=== PATIENT | female | born 1970 | race Two or more races ===

== ENCOUNTER 2023-12-12 17:17 | Emergency (ER) | payer MEDICAID, OTHER ==
[~2023-12-12] VITALS: Ht 147.3 cm; Wt 57.2 kg
[2023-12-12 18:25] LABS: Urine Bacteria MANY /hpf (None Seen); Urine Blood TRACE /uL (Negative); Urine Clarity HAZY (Clear); Urine Color Yellow (Yellow); Urine Mucus FEW (None Seen); Urine Protein, UAD 1+ (Negative); Urine Specific Gravity 1.013 (1.001-1.035); Urine Urobilinogen Normal (Negative); Urine WBC 100 /hpf (0 - 5)
[2023-12-12 18:36] LABS: Basophils # (auto) 0 10 ^3/uL (0-0.2); Basophils % (auto) 0.3 % (0.0-2.0); Eosinophils # (auto) 0 10 ^3/uL (0-0.8); Hematocrit 29.9 % (36.0-46.0); Hemoglobin 9.8 g/dL (12.2-16.2); Lymphocytes % (auto) 7.2 % (10.0-50.0); Mean Corpuscular Hemoglobin 29.2 pg (28.0-32.0); Mean Corpuscular Hgb Conc. 32.7 g/dL (32.0-36.0); Mean Corpuscular Volume 89.3 fL (80.0-100.0); Monocytes # (auto) 0.8 10 ^3/uL (0-1.3); Monocytes % (auto) 6.1 % (0.0-12.0); Neutrophils # (auto) 11.8 10 ^3/uL (1.6-8.6); Neutrophils % (auto) 86.4 % (37.0-80.0); Red Blood Cells 3.35 10^6/uL (4.0-5.20); Red Cell Distribution Width 14.8 % (11.8-14.3); White Blood Cell 13.7 10^3/uL (4.4-10.8)
[2023-12-12 18:52] LABS: Alanine Aminotransferase 12 U/L (7-40); Albumin 3.6 g/dL (3.2-4.8); Alkaline Phosphatase 86 U/L (46-116); Anion Gap 7 (5-15); Aspartate Aminotransferase 13 U/L (13-40); BUN/Creatinine Ratio 27.9 (10.0-20.0); Bilirubin, Total 0.9 mg/dL (0.2-1.0); Blood Urea Nitrogen 34 mg/dL (9-23); Calcium 8.5 mg/dL (8.7-10.4); Carbon Dioxide 27 mmol/L (20-30); Chloride 103 mmol/L (98-107); Glucose 158 mg/dL (74-106); Lipase 30 U/L (12-53); Sodium 137 mmol/L (136-145); Total Protein 5.9 g/dL (5.7-8.2)
[2023-12-12] MEDS ORDERED: DICY10CA PO (20:02)
[2023-12-12] MEDS ORDERED: NAP500T PO (20:02)
[2023-12-12] MEDS ORDERED: ZOFR4T PO (20:02)
[2023-12-12] MEDS ORDERED: CIPR-173 PO (20:02)
[2023-12-12] MEDS: MAALOX PLUS or MAALOX 30 ML PO ONE (21:54)
[2023-12-12] MEDS: ONDANSETRON ODT 4 MG TAB PO ONE (21:54)
[2023-12-12] MEDS: DONNATAL 5ml ORAL Elix (BELLADONNA ALK-PHENOBARB) PO ONE (21:54)
[2023-12-12] MEDS: LIDOCAINE VISCOUS 2% 15ML UD PO ONE (21:55)
[2023-12-12] MEDS: KETOROLAC TROMETH 60MG/2ML VIAL IM ONE (21:56)
[2023-12-12 22:21] VITALS: BP 124/70; PULSE 100; RESP 17; TEMP 98.3; O2SAT 100
== END 2023-12-12 22:24 | disposition home or self-care (01) ==
LOC: ER 17:17
DX: N10 Acute pyelonephritis (principal); K52.9 Noninfective gastroenteritis and colitis, unspecified; K59.00 Constipation, unspecified; E11.9 Type 2 diabetes mellitus without complications; I10 Essential (primary) hypertension
CPT/HCPCS: 36415; 74176; 80053; 81001; 83690; 85025; 96372; 99285; J1885; Q0162

== ENCOUNTER 2024-03-17 23:44 | Inpatient (IN) | payer MEDICAID ==
[~2024-03-17] VITALS: Ht 152.4 cm; Wt 70.8 kg
[~2024-03-17 23:44] MED LIST: ATOR20TA50 PO; BENA10TA16 GT; CARV3.1240 PO; CHOL200021 PO; CIPR-173 PO; DICY10CA PO; DULA3INJ SC; FURO1TAB33 PO; INSU1INJ19 SC; LOSA-533 PO; NAP500T PO; ZOFR4T PO
[2024-03-18] VITALS (10 sets, daily range): BP systolic 141–174; BP diastolic 62–79; PULSE 84–90; RESP 18–36; TEMP 97.5–98.3; O2SAT 96–98
[2024-03-18] MEDS: cloNIDine HCL 0.1 MG TAB PO ONE (00:11)
[2024-03-18 00:43] LABS: Basophils # (auto) 0.1 10 ^3/uL (0-0.2); Basophils % (auto) 1.1 % (0.0-2.0); Eosinophils # (auto) 0.1 10 ^3/uL (0-0.8); Eosinophils % (auto) 2.6 % (0.0-7.0); Hematocrit 22.7 % (36.0-46.0); Hemoglobin 7.4 g/dL (12.2-16.2); Lymphocytes # (auto) 1.8 10 ^3/uL (0.4-5.4); Lymphocytes % (auto) 33.7 % (10.0-50.0); Mean Corpuscular Hemoglobin 29.6 pg (28.0-32.0); Mean Corpuscular Hgb Conc. 32.5 g/dL (32.0-36.0); Mean Corpuscular Volume 91.1 fL (80.0-100.0); Monocytes # (auto) 0.4 10 ^3/uL (0-1.3); Monocytes % (auto) 6.9 % (0.0-12.0); Neutrophils # (auto) 2.9 10 ^3/uL (1.6-8.6); Neutrophils % (auto) 55.7 % (37.0-80.0); Nucleated Red Blood Cells % 0.1 %; Red Blood Cells 2.49 10^6/uL (4.0-5.20); Red Cell Distribution Width 14.9 % (11.8-14.3); White Blood Cell 5.2 10^3/uL (4.4-10.8)
[2024-03-18 00:56] LABS: Alanine Aminotransferase 33 U/L (7-40); Albumin 3.6 g/dL (3.2-4.8); Alkaline Phosphatase 268 U/L (46-116); Anion Gap 7 (5-15); Aspartate Aminotransferase 23 U/L (13-40); BUN/Creatinine Ratio 23.3 (10.0-20.0); Blood Urea Nitrogen 30 mg/dL (9-23); Calcium 8.9 mg/dL (8.7-10.4); Carbon Dioxide 23 mmol/L (20-30); Chloride 105 mmol/L (98-107); Glucose 353 mg/dL (74-106); Lipase 37 U/L (12-53); Potassium 4.1 mmol/L (3.5-5.1); Sodium 135 mmol/L (136-145)
[2024-03-18 00:57] LABS: Bilirubin, Total 0.5 mg/dL (0.2-1.0); Total Protein 6.7 g/dL (5.7-8.2)
[2024-03-18 01:34] LABS: Ferritin 59.4 ng/mL (10-291); Folate (Folic Acid) 17.5 ng/mL (>5.38)
[2024-03-18 01:49] LABS: % Iron Saturation 12.2 % (15-50)
[2024-03-18] MEDS ORDERED: HYDROcodone-ACET 5/325MG TAB PO PRN (02:00)
[2024-03-18] MEDS ORDERED: DOCUSATE SOD 100 MG CAP PO PRN (02:00)
[2024-03-18] MEDS ORDERED: MORPHINE SULFATE INJ 2 MG/ml SYRG IV PRN (04:00)
[2024-03-18] MEDS ORDERED: NITROGLYCERIN 0.4 MG SL TAB SL PRN (04:00)
[2024-03-18 04:20] LABS: Eosinophils # (auto) 0.1 10 ^3/uL (0-0.8); Lymphocytes # (auto) 1.9 10 ^3/uL (0.4-5.4); Monocytes # (auto) 0.4 10 ^3/uL (0-1.3)
[2024-03-18 04:22] LABS: Basophils # (auto) 0 10 ^3/uL (0-0.2); Basophils % (auto) 0.9 % (0.0-2.0); Eosinophils % (auto) 2.7 % (0.0-7.0); Hematocrit 20.4 % (36.0-46.0); Lymphocytes % (auto) 35.4 % (10.0-50.0); Mean Corpuscular Hemoglobin 30.3 pg (28.0-32.0); Mean Corpuscular Hgb Conc. 33.4 g/dL (32.0-36.0); Mean Corpuscular Volume 90.6 fL (80.0-100.0); Monocytes % (auto) 7.9 % (0.0-12.0); Neutrophils # (auto) 2.8 10 ^3/uL (1.6-8.6); Neutrophils % (auto) 53.1 % (37.0-80.0); Red Blood Cells 2.25 10^6/uL (4.0-5.20); Red Cell Distribution Width 14.8 % (11.8-14.3); White Blood Cell 5.2 10^3/uL (4.4-10.8)
[2024-03-18 04:30] LABS: Hemoglobin 6.8 g/dL (12.2-16.2)
[2024-03-18 04:44] LABS: Alanine Aminotransferase 29 U/L (7-40); Alkaline Phosphatase 239 U/L (46-116); Anion Gap 5 (5-15); Aspartate Aminotransferase 17 U/L (13-40); BUN/Creatinine Ratio 26.1 (10.0-20.0); Blood Urea Nitrogen 30 mg/dL (9-23); Calcium 8.6 mg/dL (8.5-10.1); Carbon Dioxide 26 mmol/L (20-30); Chloride 106 mmol/L (98-107); Glucose 253 mg/dL (74-106); Potassium 4.1 mmol/L (3.5-5.1); Sodium 137 mmol/L (136-145)
[2024-03-18 04:45] LABS: Albumin 3.2 g/dL (3.2-4.8); Bilirubin, Total 0.5 mg/dL (0.2-1.0); Total Protein 5.8 g/dL (5.7-8.2)
[2024-03-18 05:07] LABS: Hypochromia Slight; Platelet Estimate Adequate
[2024-03-18] MEDS: SODIUM CHLORIDE 0.9% 1,000 ML IV ONE (05:43)
[2024-03-18] MEDS: FUROSEMIDE 40 MG/4 ML VIAL IV ONE (05:44)
[2024-03-18] MEDS: InsuLIN REG 1unit/0.01ml Soln (100units/ml) SC SCH (05:44)
[2024-03-18] MEDS: INSULIN LISPRO (HUMAN) 100 UNITS/ML ML SC ONE (05:46)
[2024-03-18] MEDS: ACCU-CHEK COMFORT CURVE STRIP VI SCH (05:46)
[2024-03-18] MEDS: SODIUM CHLOR 0.9% PF (SALINE LOCK) 10ML VIAL/SYR IV SCH (06:05)
[2024-03-18 08:10] LABS: Urine Bacteria FEW /hpf (None Seen); Urine Blood Negative /uL (Negative); Urine Clarity Turbid (Clear); Urine Color Colorless (Yellow); Urine Hyaline Cast FEW /lpf (0 - 2); Urine Protein, UAD TRACE (Negative); Urine Specific Gravity 1.006 (1.001-1.035); Urine Urobilinogen Normal (Negative); Urine WBC 136 /hpf (0 - 5); Urine pH 5.5 (5.0-9.0)
[2024-03-18] MEDS: DEXTROSE (50%) 50ML SYRG IV PRN (08:18)
[2024-03-18] MEDS: FUROSEMIDE 40 MG/4 ML VIAL IV SCH (11:06)
[2024-03-18] MEDS: amLODIPine BESYLATE 5 MG TAB PO SCH (11:17)
[2024-03-18] MEDS: CARVEDILOL 3.125 MG TAB PO SCH (11:17)
[2024-03-18] MEDS: ASPirin 81 mg TAB PO SCH (11:17)
[2024-03-18] MEDS: hydrALAZINE HCL 20 MG/ML VL IV PRN (19:11)
[2024-03-18] MEDS: ATORVASTATIN 20 MG TAB PO SCH (22:12)
[2024-03-19] VITALS (8 sets, daily range): BP systolic 146–189; BP diastolic 59–81; PULSE 88–99; RESP 14–20; TEMP 97.6–98.6; O2SAT 91–97
[2024-03-19] MEDS ORDERED: LOSA-534 PO (02:28)
[2024-03-19] MEDS ORDERED: CHOL500033 PO (02:28)
[2024-03-19] MEDS ORDERED: CYA100I PO (02:28)
[2024-03-19 06:04] LABS: Basophils # (auto) 0.1 10 ^3/uL (0-0.2); Basophils % (auto) 0.8 % (0.0-2.0); Eosinophils # (auto) 0.1 10 ^3/uL (0-0.8); Hematocrit 30.3 % (36.0-46.0); Lymphocytes # (auto) 1.5 10 ^3/uL (0.4-5.4); Lymphocytes % (auto) 22.3 % (10.0-50.0); Mean Corpuscular Hemoglobin 29.5 pg (28.0-32.0); Mean Corpuscular Hgb Conc. 32.9 g/dL (32.0-36.0); Mean Corpuscular Volume 89.5 fL (80.0-100.0); Monocytes # (auto) 0.5 10 ^3/uL (0-1.3); Neutrophils # (auto) 4.6 10 ^3/uL (1.6-8.6); Neutrophils % (auto) 66.9 % (37.0-80.0); Red Blood Cells 3.39 10^6/uL (4.0-5.20); Red Cell Distribution Width 15.1 % (11.8-14.3); White Blood Cell 6.8 10^3/uL (4.4-10.8)
[2024-03-19 06:24] LABS: Alanine Aminotransferase 21 U/L (7-40); Alkaline Phosphatase 198 U/L (46-116); Anion Gap 4 (5-15); BUN/Creatinine Ratio 24.6 (10.0-20.0); Blood Urea Nitrogen 28 mg/dL (9-23); Calcium 8.7 mg/dL (8.7-10.4); Carbon Dioxide 28 mmol/L (20-30); Chloride 108 mmol/L (98-107); Glucose 117 mg/dL (74-106); Potassium 3.8 mmol/L (3.5-5.1); Sodium 140 mmol/L (136-145)
[2024-03-19 06:25] LABS: Aspartate Aminotransferase 15 U/L (13-40); Bilirubin, Total 0.8 mg/dL (0.2-1.0); Total Protein 5.7 g/dL (5.7-8.2)
[2024-03-19] MEDS: cefTRIAXone 1GM/50ML D5W 50 ML IV SCH (10:13)
[2024-03-19] MEDS: ACETAMINOPHEN 325 MG TAB PO PRN (12:09)
[2024-03-20] VITALS (8 sets, daily range): BP systolic 144–176; BP diastolic 56–78; PULSE 71–96; RESP 17–20; TEMP 95.5–98.2; O2SAT 91–96
[2024-03-20] MEDS: PANTOPRAZOLE 40 MG TAB PO SCH (05:25)
[2024-03-20 07:06] LABS: Basophils # (auto) 0 10 ^3/uL (0-0.2); Basophils % (auto) 0.8 % (0.0-2.0); Eosinophils # (auto) 0.2 10 ^3/uL (0-0.8); Eosinophils % (auto) 2.7 % (0.0-7.0); Hematocrit 30.8 % (36.0-46.0); Hemoglobin 10.2 g/dL (12.2-16.2); Lymphocytes # (auto) 1.9 10 ^3/uL (0.4-5.4); Lymphocytes % (auto) 29.6 % (10.0-50.0); Mean Corpuscular Hemoglobin 29.7 pg (28.0-32.0); Mean Corpuscular Hgb Conc. 33.2 g/dL (32.0-36.0); Mean Corpuscular Volume 89.2 fL (80.0-100.0); Monocytes # (auto) 0.6 10 ^3/uL (0-1.3); Monocytes % (auto) 10.2 % (0.0-12.0); Neutrophils # (auto) 3.6 10 ^3/uL (1.6-8.6); Neutrophils % (auto) 56.7 % (37.0-80.0); Red Blood Cells 3.45 10^6/uL (4.0-5.20); White Blood Cell 6.3 10^3/uL (4.4-10.8)
[2024-03-20] MEDS: SODIUM FERR GLUC 62.5MG/5ML 110 ML IV SCH (14:02)
[2024-03-21] VITALS (9 sets, daily range): BP systolic 119–165; BP diastolic 53–68; PULSE 90–108; RESP 15–18; TEMP 97.7–98.6; O2SAT 92–98
[2024-03-21 07:57] LABS: INR 0.99 (0.9-1.15); Prothrombin Time 10.5 sec (9.3-11.8)
[2024-03-21] MEDS ORDERED: fentaNYL CITRATE 100 MCG/2 ML VL ONE (08:42)
[2024-03-21] MEDS ORDERED: MIDAZOLAM HCL 2MG/2ML 2ml VIAL (1mg/ml) ONE (08:43)
[2024-03-21] MEDS ORDERED: DexAMETHasone SOD PHOS 10MG/1ML VIAL INJ ONE (08:45)
[2024-03-21] MEDS ORDERED: DEXTROSE (50%) 50ML SYRG IV PRN (08:45)
[2024-03-21] MEDS: ONDANSETRON HCL 4 MG/2 ML VIAL IV PRN (08:46)
[2024-03-21] MEDS: LIDOCAINE VISCOUS 2% 15ML UD ONE (09:10)
[2024-03-21 09:17] LABS: Hepatitis B Surface Antigen Negative (Negative)
[2024-03-21] MEDS ORDERED: PROPOFOL 10 MG/ML 20 ML IV ONE (09:19)
[2024-03-21 09:39] LABS: Hepatitis C Antibody Negative (Negative)
[2024-03-21] MEDS: GOLYTELY 4L KIT PO ONE (12:02)
[2024-03-21] MEDS: ACCU-CHEK COMFORT CURVE STRIP VI SCH (12:02)
[2024-03-21] MEDS: InsuLIN REG 1unit/0.01ml Soln (100units/ml) SC SCH ×2 (12:03→21:19)
[2024-03-22] VITALS (12 sets, daily range): BP systolic 123–165; BP diastolic 49–104; PULSE 72–94; RESP 12–20; TEMP 98–98.4; O2SAT 94–97
[2024-03-22] MEDS: GOLYTELY 4L KIT PO ONE (05:16)
[2024-03-22] MEDS: MAGNESIUM CITRATE SOLUTION 300 ML BTL PO ONE (05:16)
[2024-03-22] MEDS ORDERED: MIDAZOLAM HCL 2MG/2ML 2ml VIAL (1mg/ml) ONE (10:26)
[2024-03-22] MEDS ORDERED: MEPERIDINE HCL (25 MG/ML) 1ML VIAL ONE (10:26)
[2024-03-22] MEDS ORDERED: fentaNYL CITRATE 100 MCG/2 ML VL ONE (10:26)
[2024-03-22] MEDS ORDERED: PROPOFOL 10 MG/ML 20 ML IV ONE (10:55)
[2024-03-22] MEDS ORDERED: DexAMETHasone SOD PHOS 10MG/1ML VIAL INJ ONE (10:55)
[2024-03-22] MEDS ORDERED: ALBUTEROL SULF 2.5 MG/0.5ML(0.5%) NEB SOLN NEB PRN (13:45)
[2024-03-22] MEDS ORDERED: IPRATROPIUM BROM 0.5 MG/2.5ML INH SOL NEB PRN (13:45)
[2024-03-22] MEDS: FUROSEMIDE 20 MG/2 ML VIAL IV ONE (14:47)
[2024-03-22] MEDS ORDERED: ATOR20TA PO (14:54)
[2024-03-22] MEDS ORDERED: EMPA1TAB PO (14:54)
[2024-03-22] MEDS ORDERED: METF-370 PO (14:54)
[2024-03-22] MEDS: SUCRALFATE 1 GM TAB PO SCH (17:24)
[2024-03-22] MEDS: FUROSEMIDE 40 MG/4 ML VIAL IV SCH (21:35)
[2024-03-23] VITALS (10 sets, daily range): BP systolic 100–167; BP diastolic 52–79; PULSE 86–101; RESP 15–20; TEMP 97.7–99.5; O2SAT 90–96
[2024-03-23 07:04] LABS: Basophils # (auto) 0 10 ^3/uL (0-0.2); Basophils % (auto) 0.2 % (0.0-2.0); Eosinophils # (auto) 0 10 ^3/uL (0-0.8); Eosinophils % (auto) 0.1 % (0.0-7.0); Hemoglobin 9.9 g/dL (12.2-16.2); Lymphocytes # (auto) 1.2 10 ^3/uL (0.4-5.4); Lymphocytes % (auto) 16.8 % (10.0-50.0); Mean Corpuscular Hemoglobin 29.6 pg (28.0-32.0); Mean Corpuscular Volume 89.7 fL (80.0-100.0); Monocytes # (auto) 0.5 10 ^3/uL (0-1.3); Monocytes % (auto) 6.7 % (0.0-12.0); Neutrophils # (auto) 5.4 10 ^3/uL (1.6-8.6); Neutrophils % (auto) 76.2 % (37.0-80.0); Nucleated Red Blood Cells % 0.1 %; Red Blood Cells 3.34 10^6/uL (4.0-5.20); Red Cell Distribution Width 14.9 % (11.8-14.3); White Blood Cell 7.1 10^3/uL (4.4-10.8)
[2024-03-23 07:42] LABS: Anion Gap 10 (5-15); Calcium 8.9 mg/dL (8.7-10.4); Carbon Dioxide 25 mmol/L (20-30); Chloride 103 mmol/L (98-107); Potassium 4.1 mmol/L (3.5-5.1); Sodium 138 mmol/L (136-145)
[2024-03-23 07:48] LABS: BUN/Creatinine Ratio 23.8 (10.0-20.0); Blood Urea Nitrogen 31 mg/dL (9-23); Glucose 303 mg/dL (74-106); Magnesium 2.5 mg/dL (1.6-2.6)
[2024-03-23 10:31] LABS: Base Excess -1.7 mmol/L (-2.0-2.0)
[2024-03-24] VITALS (9 sets, daily range): BP systolic 144–162; BP diastolic 59–74; PULSE 68–93; RESP 12–20; TEMP 98.1–99.6; O2SAT 93–95
[2024-03-24 07:06] LABS: Basophils # (auto) 0.1 10 ^3/uL (0-0.2); Basophils % (auto) 0.7 % (0.0-2.0); Eosinophils # (auto) 0.1 10 ^3/uL (0-0.8); Eosinophils % (auto) 0.8 % (0.0-7.0); Hematocrit 29.3 % (36.0-46.0); Hemoglobin 9.8 g/dL (12.2-16.2); Lymphocytes # (auto) 1.4 10 ^3/uL (0.4-5.4); Lymphocytes % (auto) 17.6 % (10.0-50.0); Mean Corpuscular Hgb Conc. 33.6 g/dL (32.0-36.0); Mean Corpuscular Volume 89.1 fL (80.0-100.0); Monocytes # (auto) 0.5 10 ^3/uL (0-1.3); Monocytes % (auto) 6.5 % (0.0-12.0); Neutrophils # (auto) 5.9 10 ^3/uL (1.6-8.6); Neutrophils % (auto) 74.4 % (37.0-80.0); Red Blood Cells 3.28 10^6/uL (4.0-5.20); Red Cell Distribution Width 14.6 % (11.8-14.3); White Blood Cell 7.9 10^3/uL (4.4-10.8)
[2024-03-24 07:16] LABS: Alanine Aminotransferase 18 U/L (7-40); Alkaline Phosphatase 161 U/L (46-116); Anion Gap 4 (5-15); Aspartate Aminotransferase 17 U/L (13-40); BUN/Creatinine Ratio 24.8 (10.0-20.0); Bilirubin, Total 0.7 mg/dL (0.2-1.0); Blood Urea Nitrogen 28 mg/dL (9-23); Calcium 8.3 mg/dL (8.5-10.1); Carbon Dioxide 30 mmol/L (20-30); Chloride 103 mmol/L (98-107); Glucose 171 mg/dL (74-106); Potassium 3.6 mmol/L (3.5-5.1); Sodium 137 mmol/L (136-145); Total Protein 5.5 g/dL (5.7-8.2)
[2024-03-25] VITALS (7 sets, daily range): BP systolic 139–166; BP diastolic 71–74; PULSE 81–94; RESP 15–20; TEMP 36.4; O2SAT 93–98
[2024-03-25] MEDS ORDERED: AMLO1TAB23 PO (10:03)
[2024-03-25] MEDS ORDERED: FERR-7 PO (10:03)
[2024-03-25] MEDS ORDERED: SUCR1TAB31 PO (10:06)
[2024-03-25] MEDS ORDERED: PANT40T PO (10:06)
[2024-03-25] MEDS ORDERED: LEVO500T91 PO (10:06)
== END 2024-03-25 11:20 | disposition home or self-care (01) | DRG 242 ==
LOC: ER 23:44 → TELE 03-18 04:00 → TELE-CENTR 03-18 23:42
PROVIDERS: ADMIT Nurse Practitioner Family; ATTEND Family Medicine
PROC: 30233N1 Transfusion of Nonautologous Red Blood Cells into Peripheral Vein, Percutaneous Approach (ICD-10-PCS; principal; 2024-03-18)
PROC: 0DB98ZX Excision of Duodenum, Via Natural or Artificial Opening Endoscopic, Diagnostic (ICD-10-PCS; 2024-03-21)
PROC: 0DB78ZX Excision of Stomach, Pylorus, Via Natural or Artificial Opening Endoscopic, Diagnostic (ICD-10-PCS; 2024-03-21)
PROC: 0DB68ZX Excision of Stomach, Via Natural or Artificial Opening Endoscopic, Diagnostic (ICD-10-PCS; 2024-03-21)
PROC: 0DB48ZX Excision of Esophagogastric Junction, Via Natural or Artificial Opening Endoscopic, Diagnostic (ICD-10-PCS; 2024-03-21)
PROC: 0DBK8ZZ Excision of Ascending Colon, Via Natural or Artificial Opening Endoscopic (ICD-10-PCS; 2024-03-22)
PROC: 0DBN8ZZ Excision of Sigmoid Colon, Via Natural or Artificial Opening Endoscopic (ICD-10-PCS; 2024-03-22)
DX: K22.11 Ulcer of esophagus with bleeding (principal); N17.0 Acute kidney failure with tubular necrosis; J96.01 Acute respiratory failure with hypoxia; E44.0 Moderate protein-calorie malnutrition; I31.39 Other pericardial effusion (noninflammatory); E11.65 Type 2 diabetes mellitus with hyperglycemia; D50.9 Iron deficiency anemia, unspecified; I50.33 Acute on chronic diastolic (congestive) heart failure; I11.0 Hypertensive heart disease with heart failure; K29.41 Chronic atrophic gastritis with bleeding; K57.31 Diverticulosis of large intestine without perforation or abscess with bleeding; D63.8 Anemia in other chronic diseases classified elsewhere; E66.9 Obesity, unspecified; E78.00 Pure hypercholesterolemia, unspecified; I16.0 Hypertensive urgency; N39.0 Urinary tract infection, site not specified; R31.9 Hematuria, unspecified; K64.8 Other hemorrhoids; K31.9 Disease of stomach and duodenum, unspecified; K63.5 Polyp of colon; Z68.30 Body mass index [BMI] 30.0-30.9, adult; Z82.0 Family history of epilepsy and other diseases of the nervous system; Z79.899 Other long term (current) drug therapy
CPT/HCPCS: 36415; 36600; 71045; 71046; 74176; 80048; 80053; 81001; 82270; 82378; 82607; 82728; 82746; 82805; 82962; 83036; 83540; 83550; 83605; 83615; 83690; 83735; 83880; 84484; 85025; 85045; 85610; 85730; 86803; 86850; 86900; 86901; 86920; 87086; 87340; 93306; 96361; 96372; 96374; 96375; 96376; G0378; J1100; J1815; J2250; J2405; J2704

== ENCOUNTER 2024-04-11 01:16 | Inpatient (IN) | payer MEDICAID ==
[2024-04-11] VITALS (11 sets, daily range): BP systolic 114–189; BP diastolic 61–123; PULSE 77–116; RESP 16–28; TEMP 97.6–98.4; O2SAT 90–98
[~2024-04-11] VITALS: Ht 149.9 cm; Wt 68.8 kg
[~2024-04-11 01:16] MED LIST changes: +AMLO1TAB23 PO; +ATOR20TA PO; -ATOR20TA50 PO; -BENA10TA16 GT; +CEPH500C PO; -CHOL200021 PO; +CHOL500033 PO; -CIPR-173 PO; +CYA100I PO; -DICY10CA PO; +EMPA1TAB PO; +FERR-7 PO; +LEVO500T91 PO; -LOSA-533 PO; +LOSA-534 PO; +METF-370 PO; -NAP500T PO; +PANT40T PO; +SUCR1TAB31 PO; -ZOFR4T PO
[2024-04-11 02:06] LABS: Alanine Aminotransferase 73 U/L (7-40); Albumin 3.9 g/dL (3.2-4.8); Alkaline Phosphatase 348 U/L (46-116); Anion Gap 8 (5-15); Aspartate Aminotransferase 85 U/L (13-40); BUN/Creatinine Ratio 26.2 (10.0-20.0); Bilirubin, Total 0.6 mg/dL (0.2-1.0); Blood Urea Nitrogen 34 mg/dL (9-23); Calcium 8.9 mg/dL (8.7-10.4); Carbon Dioxide 21 mmol/L (20-30); Chloride 107 mmol/L (98-107); Potassium 4.3 mmol/L (3.5-5.1); Sodium 136 mmol/L (136-145); Total Protein 7.3 g/dL (5.7-8.2)
[2024-04-11] MEDS: NITROGLYCERIN 50MG/250ML 250 ML IV SCH (02:13)
[2024-04-11 02:25] LABS: Basophils # (auto) 0.1 10 ^3/uL (0-0.2); Basophils % (auto) 0.8 % (0.0-2.0); Eosinophils # (auto) 0.1 10 ^3/uL (0-0.8); Eosinophils % (auto) 1.4 % (0.0-7.0); Glucose 531 mg/dL (74-106); Hematocrit 30.4 % (36.0-46.0); Hemoglobin 9.9 g/dL (12.2-16.2); Lymphocytes # (auto) 2.8 10 ^3/uL (0.4-5.4); Mean Corpuscular Hemoglobin 29.2 pg (28.0-32.0); Mean Corpuscular Hgb Conc. 32.4 g/dL (32.0-36.0); Mean Corpuscular Volume 90.2 fL (80.0-100.0); Monocytes # (auto) 0.5 10 ^3/uL (0-1.3); Monocytes % (auto) 5.5 % (0.0-12.0); Neutrophils # (auto) 6.1 10 ^3/uL (1.6-8.6); Neutrophils % (auto) 63.3 % (37.0-80.0); Nucleated Red Blood Cells % 0.1 %; Red Blood Cells 3.38 10^6/uL (4.0-5.20); Red Cell Distribution Width 14.9 % (11.8-14.3); White Blood Cell 9.7 10^3/uL (4.4-10.8)
[2024-04-11] MEDS: NITROGLYCERIN 50MG/250ML 250 ML IV ONE (02:26)
[2024-04-11] MEDS: InsuLIN REG 1unit/0.01ml Soln (100units/ml) IV ONE (02:52)
[2024-04-11] MEDS: FUROSEMIDE 100 MG/10ML VIAL IV ONE (03:13)
[2024-04-11 03:16] LABS: Base Excess -3.2 mmol/L (-2.0-2.0)
[2024-04-11] MEDS ORDERED: MORPHINE SULFATE INJ 2 MG/ml SYRG IV PRN (05:15)
[2024-04-11] MEDS ORDERED: ONDANSETRON HCL 4 MG/2 ML VIAL IV PRN (05:15)
[2024-04-11] MEDS ORDERED: NITROGLYCERIN 0.4 MG SL TAB SL PRN (05:15)
[2024-04-11] MEDS ORDERED: DEXTROSE (50%) 50ML SYRG IV PRN ×2 (05:15→13:15)
[2024-04-11] MEDS: InsuLIN REG 1unit/0.01ml Soln (100units/ml) SC SCH ×3 (08:00→22:16)
[2024-04-11] MEDS: LOSARTAN POTASSIUM 50 MG TAB PO SCH (08:50)
[2024-04-11] MEDS: CARVEDILOL 3.125 MG TAB PO SCH (08:51)
[2024-04-11] MEDS: amLODIPine BESYLATE 5 MG TAB PO SCH (08:51)
[2024-04-11] MEDS: ACCU-CHEK COMFORT CURVE STRIP VI SCH ×2 (08:52→16:30)
[2024-04-11] MEDS: FUROSEMIDE 20 MG/2 ML VIAL IV SCH (16:31)
[2024-04-11] MEDS ORDERED: FUROSEMIDE 20 MG/2 ML VIAL IV SCH (18:00)
[2024-04-11 22:34] LABS: Urine Bacteria None Seen /hpf (None Seen)
[2024-04-11 22:40] LABS: Urine Blood Negative /uL (Negative); Urine Budding Yeast MODERATE /hpf (None Seen); Urine Clarity Clear (Clear); Urine Color Light-Yellow (Yellow); Urine Hyaline Cast FEW /lpf (0 - 2); Urine Protein, UAD 1+ (Negative); Urine Specific Gravity 1.009 (1.001-1.035); Urine Urobilinogen Normal (Negative); Urine WBC 9 /hpf (0 - 5); Urine pH 5.5 (5.0-9.0)
[2024-04-12] VITALS (8 sets, daily range): BP systolic 137–150; BP diastolic 62–70; PULSE 77–89; RESP 16–20; TEMP 97.5–98.3; O2SAT 92–97
[2024-04-12 06:14] LABS: Hematocrit 25.1 % (36.0-46.0); Lymphocytes # (auto) 1.8 10 ^3/uL (0.4-5.4); Mean Corpuscular Volume 87.9 fL (80.0-100.0); Nucleated Red Blood Cells % 0.1 %
[2024-04-12 06:17] LABS: Basophils # (auto) 0 10 ^3/uL (0-0.2); Basophils % (auto) 0.8 % (0.0-2.0); Eosinophils # (auto) 0.1 10 ^3/uL (0-0.8); Eosinophils % (auto) 2.7 % (0.0-7.0); Hemoglobin 8.5 g/dL (12.2-16.2); Lymphocytes % (auto) 35.5 % (10.0-50.0); Mean Corpuscular Hemoglobin 29.6 pg (28.0-32.0); Mean Corpuscular Hgb Conc. 33.7 g/dL (32.0-36.0); Monocytes # (auto) 0.4 10 ^3/uL (0-1.3); Monocytes % (auto) 7.1 % (0.0-12.0); Neutrophils # (auto) 2.8 10 ^3/uL (1.6-8.6); Neutrophils % (auto) 53.9 % (37.0-80.0); Red Blood Cells 2.86 10^6/uL (4.0-5.20); Red Cell Distribution Width 14.5 % (11.8-14.3); White Blood Cell 5.1 10^3/uL (4.4-10.8)
[2024-04-12 06:19] LABS: Chloride 111 mmol/L (98-107); Potassium 3.6 mmol/L (3.5-5.1); Sodium 142 mmol/L (136-145)
[2024-04-12 06:20] LABS: Anion Gap 6 (5-15); Calcium 8.6 mg/dL (8.7-10.4); Carbon Dioxide 25 mmol/L (20-30)
[2024-04-12 06:25] LABS: BUN/Creatinine Ratio 32.7 (10.0-20.0); Blood Urea Nitrogen 33 mg/dL (9-23); Glucose 73 mg/dL (74-106)
[2024-04-12] MEDS: EMPAGLIFLOZIN 10 MG TAB PO SCH (09:21)
[2024-04-12] MEDS ORDERED: AMLO1TAB22 PO (14:14)
[2024-04-12] MEDS ORDERED: LOSA-535 PO (14:17)
[2024-04-13] VITALS (8 sets, daily range): BP systolic 125–163; BP diastolic 49–72; PULSE 71–85; RESP 15–20; TEMP 97.6–98.7; O2SAT 91–96
[2024-04-13 06:28] LABS: Anion Gap 6 (5-15); Carbon Dioxide 27 mmol/L (20-30); Chloride 109 mmol/L (98-107); Potassium 3.9 mmol/L (3.5-5.1); Sodium 142 mmol/L (136-145)
[2024-04-13 06:30] LABS: Calcium 8.9 mg/dL (8.5-10.1)
[2024-04-13 06:34] LABS: BUN/Creatinine Ratio 30.2 (10.0-20.0); Blood Urea Nitrogen 32 mg/dL (9-23); Glucose 122 mg/dL (74-106)
[2024-04-13] MEDS: LOSARTAN POTASSIUM 50 MG TAB PO SCH (10:01)
[2024-04-13] MEDS: CARVEDILOL 3.125 MG TAB PO ONE (13:30)
[2024-04-13] MEDS ORDERED: hydrALAZINE HCL 20 MG/ML VL IV PRN (13:45)
[2024-04-13] MEDS: CARVEDILOL 3.125 MG TAB PO SCH (22:00)
[2024-04-14] VITALS (8 sets, daily range): BP systolic 122–154; BP diastolic 46–67; PULSE 67–82; RESP 14–18; TEMP 97–98.4; O2SAT 89–97
[2024-04-14] MEDS ORDERED: AMLO1TAB23 PO (14:45)
[2024-04-14] MEDS ORDERED: FURO1TAB31 PO (14:45)
[2024-04-14] MEDS ORDERED: METO2.5T PO (14:45)
[2024-04-14 17:16] LABS: Base Excess 4.2 mmol/L (-2.0-2.0)
[2024-04-15 05:00] VITALS: BP 141/53; PULSE 74; RESP 18; TEMP 97.9; O2SAT 98
[2024-04-15 08:00] VITALS: PULSE 77; RESP 14; O2SAT 96
[2024-04-15 08:55] VITALS: BP 129/59; PULSE 77; RESP 14; TEMP 99; O2SAT 96
[2024-04-15 13:00] VITALS: BP 134/65; PULSE 74; RESP 16; TEMP 97.7; O2SAT 95
[2024-04-15 15:06] VITALS: BP 134/65; PULSE 74; RESP 17; TEMP 36.5; O2SAT 96
[2024-04-15 17:00] VITALS: BP 151/74; PULSE 82; RESP 18; TEMP 97.8; O2SAT 90
== END 2024-04-15 16:01 | disposition home or self-care (01) | DRG 133 ==
LOC: ER 01:16 → TELE 05:14 → TELE-WESTW 05:14
PROVIDERS: ADMIT Nurse Practitioner; ATTEND Internal Medicine
PROC: 5A0935A Assistance with Respiratory Ventilation, Less than 24 Consecutive Hours, High Flow/Velocity Cannula (ICD-10-PCS; principal; 2024-04-11)
PROC: 5A09357 Assistance with Respiratory Ventilation, Less than 24 Consecutive Hours, Continuous Positive Airway Pressure (ICD-10-PCS; 2024-04-11)
DX: J96.00 Acute respiratory failure, unspecified whether with hypoxia or hypercapnia (principal); N17.0 Acute kidney failure with tubular necrosis; I21.A1 Myocardial infarction type 2; I50.33 Acute on chronic diastolic (congestive) heart failure; E11.22 Type 2 diabetes mellitus with diabetic chronic kidney disease; D64.9 Anemia, unspecified; E11.65 Type 2 diabetes mellitus with hyperglycemia; I13.0 Hypertensive heart and chronic kidney disease with heart failure and stage 1 through stage 4 chronic kidney disease, or unspecified chronic kidney disease; E66.9 Obesity, unspecified; N18.30 Chronic kidney disease, stage 3 unspecified; E78.00 Pure hypercholesterolemia, unspecified; Z79.899 Other long term (current) drug therapy; Z82.0 Family history of epilepsy and other diseases of the nervous system; Z79.4 Long term (current) use of insulin; Z87.19 Personal history of other diseases of the digestive system; Z68.30 Body mass index [BMI] 30.0-30.9, adult; I16.1 Hypertensive emergency
CPT/HCPCS: 36415; 36600; 71045; 80048; 80053; 81001; 82805; 82962; 83880; 84484; 85025; 93005; 96365; 96375; 99291; G0378; J1815